=== PATIENT | female | born 1970 | race Caucasian/White ===

== ENCOUNTER → 2016-08-29 | Outpatient (CLI) | payer OTHER ==
[~2016-08-29] MED LIST: ATV/1 PO; CALC500T68 PO; LEVO175T3 PO; MISCCAP80 PO; OMEP40CA PO; SERT50TA PO; TURMPOW2 PO; VITAMIN D PO
== END ==
LOC: C.PAPS 14:16
PROVIDERS: ATTEND Obstetrics & Gynecology
DX: Z12.4 Encounter for screening for malignant neoplasm of cervix (principal)

== ENCOUNTER → 2017-03-09 | Outpatient (CLI) | payer OTHER ==
--- NOTE | 2017-03-10 07:48 | MAMMOGRAPHY REPORT ---
BILATERAL DIGITAL DIAGNOSTIC MAMMOGRAM TOMOSYNTHESIS WITH CAD AND TARGETED RIGHT ULTRASOUND: 7 CLINICAL HISTORY: 46-year-old woman with a history of a stable prolactinoma presents with right peria reolar itchiness for a few months. No skin changes or nipple discharge. No palpable lump identified . Also due for bilateral screening mammography. TECHNIQUE: Bilateral breast tomosynthesis in addition to standard 2D mammography was performed. Curre nt study was also evaluated with a Computer Aided Detection (CAD) system. COMPARISON: No prior exams were available for comparison. BREAST COMPOSITION: The tissue of both breasts is extremely dense, which lowers the sensitivity of m ammography. FINDINGS: The parenchymal pattern appears similar to the prior 2013 mammograms. No obvious new mass es, microcalcifications, asymmetry or areas of distortion are identified. No focal skin thickening o r nipple retraction is identified. Targeted ultrasound was performed in the periareolar and retroareolar right breast. In the 9:00 narayan areolar region, there are a few adjacent branching ducts that are enlarged compared to the remainder of the ducts identified in the periareolar breast, and there is intraductal debris versus mass. Thes e ducts measure at least 3 cm in radial length, and the duct thickness measures up to 2.8 mm. Althou gh this could represent bland debris, given it is the only area of enlarged ducts with internal echog enicity, and the patient reported symptoms while scanning over this area, definitive characterization with an ultrasound-guided core needle biopsy is recommended to exclude the possibility of an intradu ctal papilloma or DCIS. IMPRESSION: ACR BI-RADS CATEGORY 4: SUSPICIOUS, TARGETED ULTRASOUND ACR BI-RADS CATEGORY 4: SUSPICIO US 1. Ultrasound-guided core needle biopsy is recommended for focally enlarged/ectatic milk ducts in th e 9:00 periareolar right breast with internal debris versus mass. It is unclear if this is causing t he patient's symptoms however she did report abnormal sensation while scanning over this area and elvis l-time ultrasound. 2. No mammographic evidence of malignancy in the left breast. Recommend routine screening in 1 year . These results and recommendations were discussed with the patient at the time of the exam. She tenta tively scheduled right breast biopsy prior to leaving our department. Approximately 10% of breast cancers are not detected with mammography. A negative mammographic report should not delay biopsy if a clinically suggestive mass is present. Veronica Rangel M.D. ay/:03/09/2017 15:29:19 Placement Secretary: Shilpa PATEL(R)(M), [facility] letter sent: Abnormal 4/5 BI-RADS Code: ACR BI-RADS Category 4: Suspicious Ultrasound BI-RADS: ACR BI-RADS Category 4: Suspici ous
== END | disposition home or self-care (01) ==
LOC: C.MAMM 11:03
PROVIDERS: ATTEND Obstetrics & Gynecology
DX: N60.49 Mammary duct ectasia of unspecified breast (principal)

== ENCOUNTER → 2017-03-18 | Outpatient (CLI) | payer OTHER ==
--- NOTE | 2017-03-18 10:41 | Discharge Instructions ---
Discharge Instructions Procedure Procedure Date: Mar 18, 2017. Reason for visit: Right Ductal Enlargement. Discharge Discharge Date: Mar 18, 2017. Discharge Diagnosis: post right breast ultrasound guided core biopsy Instructions Activity Recommendations: Additional Limitations (see below) Return to School/Work: no limitations Recommended Home Diet: No Limitations Provider Instructions: ACTIVITY RECOMMENDATIONS: * No lifting, pushing, pulling or exercising the affected side for three days. RETURN TO SCHOOL/WORK: * You may return to work/school after the procedure, but do not perform any strenuous activities for 24 to 48 hours. MEDICATIONS: * Tylenol (two 325 mg) every four to six hours if needed for mild pain (if not allergic to Tylenol). DIET: * Resume previous diet. SPECIAL CARE INSTRUCTIONS: * Keep biopsy site dry for 24 hours. May shower after 24 hours, but do not soak (bathe) incision. * May remove Tegaderm (plastic patch) tomorrow AFTER showering. * Leave the steri-strips on for one week. Allow the steri-strips to fall off by themselves. If not off after one week, you may remove them. You may place a Bandaid crosswise over the strips, if desired. * Apply ice 10 minutes on and 10 minutes off as needed. * Wear a bra at bedtime to sleep more comfortably for 2-3 days. * Your referring physician should have the results after approximately 5 to 7 business days. * Call for unusual bleeding, fever, drainage, etc or if you have any questions call [phone] during normal business hours or after hours call Dr Rangel, . FOLLOW UP VISIT: Follow-up with Referring Physician as scheduled. Allergies Coded Allergies: NO KNOWN DRUG ALLERGIES (Verified Allergy, Unknown, ., 08/30/15) Ronald Vásquez Recommendations: Call your doctor if: * Temperature above 101 degrees * Pain not relieved by pain medicine ordered * There is increased drainage or redness from any incision * You have any unanswered questions or concerns. Your Doctors Instructions noted above were prepared by provider Veronica Rangel. Patient Signature Section: Patient Instructions Signature Page Radha Johnson Patient (or Guardian) Signature/Date: I have read and understand the instructions given to me by my caregivers. Caregiver/RN/Doctor Signature/Date: The above-named patient and/or guardian has received patient instructions on this date. + Original Patient Signature Page (only) stays with chart. Please make copy for patient.
--- NOTE | 2017-03-18 15:21 | MAMMOGRAPHY REPORT ---
UNILATERAL RIGHT DIGITAL DIAGNOSTIC MAMMOGRAM TOMOSYNTHESIS: 03/18/2017 CLINICAL HISTORY: Status post ultrasound-guided core biopsy of a focally enlarged duct with internal debris versus mass in the 9:00 periareolar right breast. Please refer to the report from right breast ultrasound guided core biopsy performed at the same time for full detail. IMPRESSION: POST PROCEDURE IMAGING FOR MARKER PLACEMENT Please refer to the report from right breast ultrasound guided core biopsy performed at the same time for full detail. Approximately 10% of breast cancers are not detected with mammography. A negative mammographic report should not delay biopsy if a clinically suggestive mass is present. Veronica Rangel M.D. ay/:03/18/2017 10:42:14 [employer]: Kristi PATEL(Ancelmo)(Danica), [facility] BI-RADS Code: Post Procedure Imaging For Marker Placement
--- NOTE | 2017-03-19 15:32 | MAMMOGRAPHY REPORT ---
ULTRASOUND GUIDED BIOPSY RIGHT BREAST: 03/18/2017 CLINICAL HISTORY: 46-year-old woman found to have an enlarged duct with internal debris versus mass i n the 9:00 periareolar right breast while evaluating the right breast for an abnormal sensation in th e periareolar region. She presents for ultrasound guided core biopsy. COMPARISON: Comparison is made to exams dated: 03/09/2017 ultrasound and 03/09/2017 mammogram - [facility]. PATIENT CONSENT: The procedure, risks and benefits were discussed with the patient and informed conse nt was obtained both verbally and in writing. Specific risks to this procedure include: bleeding, in fection, puncture of adjacent structure, nontarget biopsy, sampling error, pain, metal allergy and me dication reaction. PROCEDURE DESCRIPTION: A time out was performed and the right breast was agreed as the site of biopsy . The skin was prepped and draped in the usual sterile fashion. The intraductal mass versus debris in the 9:00 periareolar right breast was chosen as the target for biopsy. Subcutaneous and intraparench ymal 1% buffered lidocaine, with and without epinephrine, was administered as local anesthesia. A ski n incision was made. Through the incision, 4 samples were taken with a 14 gauge Achieve biopsy devic e. A ribbon shaped metallic marker was placed at the biopsy site. Hemostasis was achieved after manua l compression. The patient tolerated the procedure well and there was no immediate complication. The samples were sent to the pathology department in an appropriately labeled container. Postprocedure right CC and ML tomosynthesis images were obtained. A new ribbon-shaped biopsy marker clip is identified in the 9:00 anterior right breast. No significant postbiopsy hematoma is seen. IMPRESSION: ULTRASOUND GUIDED BIOPSY 1. Status post ultrasound-guided core biopsy of a focally ectatic milk duct with internal debris leroy adela mass in the 9:00 periareolar right breast, with biopsy marker placed at the site. 2. Clinical follow-up is still recommended as it is unclear if this could be causing the patient's a bnormal sensation in the right breast. The patient will receive notification of the biopsy results from her referring physician. Veronica Rangel M.D. ay/:03/18/2017 16:48:21 Program Associate: Shilpa Frye, [facility]
== END | disposition home or self-care (01) ==
LOC: C.MAMM 10:02
PROVIDERS: ATTEND Obstetrics & Gynecology
DX: R92.8 Other abnormal and inconclusive findings on diagnostic imaging of breast (principal)